=== PATIENT | male | born 1970 | race Caucasian/White ===

== ENCOUNTER 2020-08-18 17:27 | Outpatient (CLI) | payer OTHER, SELFPAY | END 2020-08-18 17:28 | disposition home or self-care (01) | LOC: ANHCOVIDVC 17:28 | PROVIDERS: PCP Emergency Medicine | DX: Z23 Encounter for immunization (principal) | CPT/HCPCS: 0001A; 91300 ==

== ENCOUNTER 2020-09-08 17:28 | Outpatient (CLI) | payer OTHER, SELFPAY | END 2020-09-08 17:29 | disposition home or self-care (01) | LOC: ANHCOVIDVC 17:28 | PROVIDERS: PCP Emergency Medicine | DX: Z23 Encounter for immunization (principal) | CPT/HCPCS: 0002A; 91300 ==